=== PATIENT | male | born 1975 | race Two or more races ===

== ENCOUNTER 2019-02-27 14:57 | Emergency (ER) | payer SELFPAY ==
--- NOTE | 2019-02-27 15:05 | EDM.PDOC ---
ED HPI GENERAL MEDICAL PROBLEM - General Chief Complaint: Skin Complaint Stated Complaint: BUMP Time Seen by Provider: 02/27/19 15:00 Source of Information: Reports: Patient History Limitations: Reports: No Limitations - History of Present Illness INITIAL COMMENTS - FREE TEXT/NARRATIVE: HISTORY AND PHYSICAL: History of present illness: Patient is a 43-year-old male who presents to the emergency room with complaints of pain to his mid abdomen. He states approximately 1 week ago he had fallen and a bar had hit him in the mid abdomen near the umbilicus. He states the area was tender to palpation and "swollen". 3 days ago he was lifting heavy boxes and doing physical activity when he noticed an umbilical hernia. States area is tender to palpation and decided to have it evaluated. He continues to void and have routine bowel movements. Patient denies any fever , chills, headache, change in vision, syncope or near syncope. Denies any chest pain, back pain, shortness of breath or cough. Denies any nausea, vomiting, diarrhea, constipation or dysuria. Has not noted any blood in urine or stool. Patient has been eating and drinking appropriately. Review of systems: As per history of present illness and below otherwise all systems reviewed and negative. Past medical history: As per history of present illness and as reviewed below otherwise noncontributory. Surgical history: As per history of present illness and as reviewed below otherwise noncontributory. Social history: See social history for further information Family history: As per history of present illness and as reviewed below otherwise noncontributory. Physical exam: General: Well developed and developed and well nourished 43 year old male. Alert and orientated x3. Nontoxic appearing and in no acute distress. HEENT: Atraumatic, normocephalic, pupils equal and reactive bilaterally, negative for conjunctival pallor or scleral icterus, mucous membranes moist, trachea midline. No drooling or trismus noted. No meningeal signs. No hot potato voice noted. Lungs: Clear to auscultation, breath sounds equal bilaterally, chest nontender. Heart: S1S2, regular rate and rhythm without overt murmur Abdomen: Soft, obese, umbilical hernia noted that is reducible but painful. Negative for masses or costovertebral tenderness. Pelvis: Stable nontender. Skin: Intact, warm, dry. No lesions or rashes noted. Extremities: Atraumatic, moves all extremities per self without difficulty or deficits, negative for cords or calf pain. Neurovascular unremarkable. Neuro: Awake, alert, oriented. Cranial nerves II through XII unremarkable. Cerebellum unremarkable. Motor and sensory unremarkable throughout. Exam nonfocal. Notes: Patient states he does have a history of hypertension and does take lisinopril 40 mg once daily. Reports he has been compliant with his medications. No CT evidence of a visceral or vascular injury in the abdomen or pelvis. A moderate to large fat containing umbilical hernia. No bowel involvement. Small fat containing inguinal hernias. Hepatic steatosis. Punctate nonobstructive renal calcifications. Dr Pradhan, general surgeon on-call, was consulted on this case. We will give patient a abdominal binder and an appointment was made for the patient to see him on 03/05/2019 at 11 AM. All this information along with signs and symptoms that would prompt him to return to the emergency room were reviewed and discussed. Supportive care measures were reviewed and discussed. Voices understanding and is agreeable to plan of care. Denies any further questions or concerns at this time. Diagnostics: CBC, CMP, UA, CT abd/pelvis Therapeutics: Clonidine, Dacoma Prescription: Dacoma (#20) Impression: Hypertension Umbilical hernia Plan: 1. Avoid any strenuous heavy lifting. Nothing over 20 lbs until told otherwise by Dr Pradhan (surgeon). Wear abdominal binder when able. Tylenol and/or ibuprofen as we discussed. Dacoma for moderate to severe pain. This medication may cause drowsiness so do not take while driving or while at work. 2. If you should have any abdominal pain that doesn't improve or worsens - you need to return to the ED. 3. Follow up with primary care to have your blood pressure re-evaluated. May need medication adjustment. 4. You have a follow up appointment with the general surgeon, Dr Pradhan 2018 at 11am ( [facility]). Definitive disposition and diagnosis as appropriate pending reevaluation and review of above. Abdominal Pain Score (Numeric/FACES): 5 - Related Data Allergies Allergy/AdvReac Type Severity Reaction Status Date / Time No Known Allergies Allergy Verified 02/27/19 15:06 Home Meds: Home Meds Hydrocodone/Acetaminophen [Dacoma 5-325 Tablet] 1 each PO Q4HR PRN #20 tablet [Rx] Lisinopril [Zestril] 40 mg PO ASDIRECTED 02/27/19 [History] ED ROS GENERAL - Review of Systems Review Of Systems: Comprehensive ROS is negative, except as noted in HPI. ED EXAM, SKIN/RASH Exam: See Below (See dictation) Course - Vital Signs Last Recorded V/S: Last Vital Signs Temp 96.1 F 02/27/19 15:07 Pulse 81 02/27/19 15:07 Resp 16 02/27/19 15:07 BP 211/129 H 02/27/19 17:19 Pulse Ox 95 02/27/19 15:07 - Orders/Labs/Meds Labs: Laboratory Tests 02/27/19 02/27/19 02/27/19 Range/Units 15:20 15:20 16:48 WBC 9.89 (4.0-11.0) K/uL RBC 5.86 (4.50-5.90) M/uL Hgb 16.5 (13.0-17.0) g/dL Hct 49.6 (38.0-50.0) % MCV 84.6 (80.0-98.0) fL MCH 28.2 (27.0-32.0) pg MCHC 33.3 (31.0-37.0) g/dL RDW Std Deviation 43.4 (28.0-62.0) fl RDW Coeff of Jose Maria 14 (11.0-15.0) % Plt Count 264 (150-400) K/uL MPV 10.40 (7.40-12.00) fL Neut % (Auto) 47.0 L (48.0-80.0) % Lymph % (Auto) 35.0 (16.0-40.0) % Hamblen % (Auto) 11.1 (0.0-15.0) % Eos % (Auto) 6.6 (0.0-7.0) % Baso % (Auto) 0.3 (0.0-1.5) % Neut # (Auto) 4.7 (1.4-5.7) K/uL Lymph # (Auto) 3.5 H (0.6-2.4) K/uL Hamblen # (Auto) 1.1 H (0.0-0.8) K/uL Eos # (Auto) 0.7 (0.0-0.7) K/uL Baso # (Auto) 0.0 (0.0-0.1) K/uL Nucleated RBC % 0.0 /100WBC Nucleated RBCs # 0 K/uL Sodium 142 (136-148) mmol/L Potassium 3.2 L (3.5-5.1) mmol/L Chloride 105 (98-107) mmol/L Carbon Dioxide 29.2 (21.0-32.0) mmol/L BUN 11 (7.0-18.0) mg/dL Creatinine 0.9 (0.8-1.3) mg/dL Est Cr Clr Drug Dosing 105.83 mL/min Estimated GFR (MDRD) > 60.0 ml/min Glucose 83 (74-106) mg/dL Calcium 8.6 (8.5-10.1) mg/dL Total Bilirubin 0.2 (0.2-1.0) mg/dL AST 14 L (15-37) IU/L ALT 31 (14-63) IU/L Alkaline Phosphatase 128 H (46-116) U/L Total Protein 7.9 (6.4-8.2) g/dL Albumin 3.7 (3.4-5.0) g/dL Globulin 4.2 H (2.6-4.0) g/dL Albumin/Globulin Ratio 0.9 (0.9-1.6) Urine Color YELLOW Urine Appearance CLEAR Urine pH 7.0 (5.0-8.0) Ur Specific Arley 1.010 (1.001-1.035) Urine Protein NEGATIVE (NEGATIVE) mg/dL Urine Glucose (UA) NEGATIVE (NEGATIVE) mg/dL Urine Ketones NEGATIVE (NEGATIVE) mg/dL Urine Occult Blood TRACE-INTACT H (NEGATIVE) Urine Nitrite NEGATIVE (NEGATIVE) Urine Bilirubin NEGATIVE (NEGATIVE) Urine Urobilinogen 0.2 (<2.0) EU/dL Ur Leukocyte Esterase NEGATIVE (NEGATIVE) Urine RBC 0-3 (0-2/HPF) Urine WBC 0-2 (0-5/HPF) Ur Epithelial Cells OCCASIONAL (NONE-FEW) Urine Bacteria RARE (NEGATIVE) Urine Mucus LIGHT (NONE-MOD) Meds: Medications Discontinued Medications Generic Name Dose Route Start Last Admin Trade Name Freq PRN Reason Stop Dose Admin Hydrocodone Bitart/Acetaminophen 1 tab 02/27/19 17:09 02/27/19 17:19 Dacoma 325-5 Mg PO 02/27/19 17:10 1 tab ONETIME ONE Administration Clonidine HCl 0.1 mg 02/27/19 15:11 02/27/19 15:21 Catapres PO 02/27/19 15:12 0.1 mg ONETIME ONE Administration Clonidine HCl 0.1 mg 02/27/19 17:09 02/27/19 17:19 Catapres PO 02/27/19 17:10 0.1 mg ONETIME ONE Administration Iopamidol 100 ml 02/27/19 16:28 02/27/19 16:28 Isovue Multipack-370 (76%) IVPUSH 02/27/19 16:29 100 ml ONETIME STA Administration Departure - Departure Time of Disposition: 17:30 Disposition: Home, Self-Care 01 Clinical Impression: Umbilical hernia Qualifiers: Obstruction and gangrene presence: without obstruction or gangrene Qualified Code(s): K42.9 - Umbilical hernia without obstruction or gangrene Hypertension Qualifiers: Hypertension type: essential hypertension Qualified Code(s): I10 - Essential ( primary) hypertension - Discharge Information Prescriptions: Hydrocodone/Acetaminophen [Dacoma 5-325 Tablet] 1 each PO Q4HR PRN #20 tablet PRN Reason: Pain Referrals: PCP,None [Primary Care Provider] - Forms: ED Department Discharge Additional Instructions: The following information is given to patients seen in the emergency department who are being discharged to home. This information is to outline your options for follow-up care. We provide all patients seen in our emergency department with a follow-up referral. The need for follow-up, as well as the timing and circumstances, are variable depending upon the specifics of your emergency department visit. If you don't have a primary care physician on staff, we will provide you with a referral. We always advise you to contact your personal physician following an emergency department visit to inform them of the circumstance of the visit and for follow-up with them and/or the need for any referrals to a consulting specialist. The emergency department will also refer you to a specialist when appropriate. This referral assures that you have the opportunity for follow-up care with a specialist. All of these measure are taken in an effort to provide you with optimal care, which includes your follow-up. Under all circumstances we always encourage you to contact your private physician who remains a resource for coordinating your care. When calling for follow-up care, please make the office aware that this follow-up is from your recent emergency room visit. If for any reason you are refused follow-up, please contact the [facility] Emergency Department at and asked to speak to the emergency department charge nurse. [facility] [address] [place] [address] [facility] [address] [place] [address] PATIENT SCHEDULED TO SEE DR MAYRA PRADHAN ON 03/05/19 AT 11AM IN THE [address] [place] [address]. 1. Avoid any strenuous heavy lifting. Nothing over 20 lbs until told otherwise by Dr Pradhan (surgeon). Wear abdominal binder when able. Tylenol and/or ibuprofen as we discussed. Dacoma for moderate to severe pain. This medication may cause drowsiness so do not take while driving or while at work. 2. If you should have any abdominal pain that doesn't improve or worsens - you need to return to the ED. 3. Follow up with primary care to have your blood pressure re-evaluated. May need medication adjustment. 4. You have a follow up appointment with the general surgeon, Dr Pradhan 2018 at 11am ([address] [place] [address]). Sepsis Event Note - Focused Exam Vital Signs: Vital Signs Temp Pulse Resp BP BP Pulse Ox 02/27/19 17:19 211/129 H 02/27/19 16:48 200/110 H 02/27/19 16:12 195/111 H 02/27/19 15:21 221/132 H 02/27/19 15:07 96.1 F 81 16 221/132 H 95 Date Exam was Performed: 02/27/19 Time Exam was Performed: 17:28
[2019-02-27] MEDS ORDERED: cloNIDine 0.1 MG Tab PO ONE ×2 (15:11→17:09)
[2019-02-27 15:55] LABS: BLOOD UREA NITROGEN,BUN 11 mg/dL (7.0-18.0); CARBON DIOXIDE,CO2 29.2 mmol/L (21.0-32.0); CHLORIDE,CL 105 mmol/L (98-107); GLUCOSE RANDOM 83 mg/dL (74-106); POTASSIUM,K 3.2 mmol/L (3.5-5.1); SODIUM,NA 142 mmol/L (136-148)
[2019-02-27] MEDS ORDERED: Iopamidol 755 MG/ML 500 ML Multipack Bottle IVPUSH STA (16:28)
--- NOTE | 2019-02-27 17:07 | CT ---
INDICATION: Umbilical hernia. Fall on 02/19/2019 TECHNIQUE: CT abdomen and pelvis acquired with IV contrast. 100 mL of Isovue 370 administered. COMPARISON: None available FINDINGS: Lower chest: Minor right lower lobe subsegmental atelectasis. Liver: Hepatic steatosis. Spleen: Unremarkable. Pancreas: Unremarkable. Gallbladder and bile ducts: Unremarkable. Adrenal glands: Unremarkable. Kidneys: No hydronephrosis. Punctate nonobstructive calcifications in both kidneys. GI tract: Unremarkable. Appendix is normal. Vascular structures: Unremarkable. Lymph nodes: Unremarkable. Miscellaneous: No free fluid or free air. A moderate to large fat containing umbilical hernia. Small fat containing inguinal hernias. Pelvic Organs: Unremarkable. Bones: Unremarkable for age. IMPRESSION: No CT evidence of a visceral or vascular injury in the abdomen or pelvis. A moderate to large fat containing umbilical hernia. No bowel involvement. Small fat containing inguinal hernias. Hepatic steatosis. Punctate nonobstructive renal calcifications. Dictated by Sridhar Mas MD @ 02/27/2019 5:06:01 PM Please note that all CT scans at this facility use dose modulation, iterative reconstruction, and/or weight-based dosing when appropriate to reduce radiation dose to as low as reasonably achievable. Dictated by: Sridhar Mas MD @ 02/27/2019 17:06:28 (Electronically Signed)
[2019-02-27] MEDS ORDERED: Acetaminophen/HYDROcodone 325-5 MG Tab PO ONE (17:09)
== END 2019-02-27 17:44 | disposition home or self-care (01) ==
LOC: MW.ED 14:57
DX: K42.9 Umbilical hernia without obstruction or gangrene (principal); I10 Essential (primary) hypertension
CPT/HCPCS: 36415; 74177; 80053; 81001; 85025; 99284; A9270; Q9967

== ENCOUNTER 2019-04-15 06:51 | Day surgery (SDC) | payer OTHER ==
[~2019-04-15 06:51] MED LIST: Lactated Ringers 1,000 ML IV SCH; ceFAZolin 2 GM in Premix Bag 1 BAG IV SCH
--- NOTE | 2019-04-15 07:13 | PCM.PREANE ---
Preanesthetic Assessment - Anesthesia/Transfusion/Family Hx Anesthesia History: No Prior Anesthesia Family History of Anesthesia Reaction: No Transfusion History: No Prior Transfusion(s) - Review of Systems General: No Symptoms Pulmonary: No Symptoms Cardiovascular: No Symptoms Gastrointestinal: No Symptoms Neurological: No Symptoms Other: Reports: None - Physical Assessment Vital Signs: Last Vital Signs Temp 97.5 F 04/15/19 07:03 Pulse 77 04/15/19 07:03 Resp 16 04/15/19 07:03 BP Pulse Ox 94 L 04/15/19 07:03 Height: 5 ft 9 in Weight: 118.841 kg ASA Class: 2 Mental Status: Alert & Oriented x3 Airway Class: Mallampati = 2 Dentition: Reports: Normal Dentition ROM/Head Extension: Full Lungs: Clear to Auscultation, Normal Respiratory Effort Cardiovascular: Regular Rate, Regular Rhythm - Allergies Allergies/Adverse Reactions: Allergies Allergy/AdvReac Type Severity Reaction Status Date / Time No Known Allergies Allergy Verified 04/15/19 07:09 - Blood Blood Available: No - Anesthesia Plan Pre-Op Medication Ordered: None - Acknowledgements Anesthesia Type Planned: General Anesthesia Pt an Appropriate Candidate for the Planned Anesthesia: Yes Alternatives and Risks of Anesthesia Discussed w Pt/Guardian: Yes Pt/Guardian Understands and Agrees with Anesthesia Plan: Yes Additional Comments: PMH: htn PLAN: ga/lma PreAnesthesia Questionnaire HEENT History: Reports: Other (See Below) Other HEENT History: wears glasses/contacts Cardiovascular History: Reports: Hypertension Respiratory History: Reports: None Gastrointestinal History: Reports: None Genitourinary History: Reports: None Musculoskeletal History: Reports: None Neurological History: Reports: None Psychiatric History: Reports: None Endocrine/Metabolic History: Reports: Obesity/BMI 30+ Hematologic History: Reports: None Immunologic History: Reports: None Oncologic (Cancer) History: Reports: None Dermatologic History: Reports: None - Past Surgical History Head Surgeries/Procedures: Reports: None HEENT Surgical History: Reports: None Cardiovascular Surgical History: Reports: None Respiratory Surgical History: Reports: None GI Surgical History: Reports: None Male Surgical History: Reports: None Endocrine Surgical History: Reports: None Neurological Surgical History: Reports: None Musculoskeletal Surgical History: Reports: None Oncologic Surgical History: Reports: None Dermatological Surgical History: Reports: None - SUBSTANCE USE Smoking Status *Q: Never Smoker - HOME MEDS Home Medications: Home Meds Losartan Potassium 100 mg PO DAILY 04/09/19 [History] - CURRENT (IN HOUSE) MEDS Current Meds: Current Medications Cefazolin Sodium/Dextrose 2 gm (/ Premix) 50 mls @ 100 mls/hr IV ONETIME [facility] Lactated Ringer's (Ringers, Lactated) 1,000 mls @ 125 mls/hr IV ASDIRECTED [facility] Last Admin: 04/15/19 07:07 Dose: 125 mls/hr
[2019-04-15] MEDS ORDERED: Propofol 200 MG/20 ML SDV ONE (07:23)
[2019-04-15] MEDS ORDERED: Midazolam 1 MG/ML 2 ML SDV ONE (07:23)
[2019-04-15] MEDS ORDERED: Dexamethasone 4 MG/ML 5 ML MDV ONE (07:23)
[2019-04-15] MEDS ORDERED: Lidocaine 2% 5 ML SDV ONE (07:23)
[2019-04-15] MEDS ORDERED: Ondansetron 4 MG/2 ML SDV ONE (07:23)
[2019-04-15] MEDS ORDERED: fentaNYL 250 MCG/5 ML SDV ONE (07:24)
[2019-04-15] MEDS ORDERED: ceFAZolin 1 GM Vial ONE ×2 (07:29→07:37)
[2019-04-15] MEDS ORDERED: Bupivacaine 0.5% 30 ML SDV ONE (07:29)
[2019-04-15] MEDS ORDERED: Sodium Chloride 0.9% 20 ML ONE (07:37)
[2019-04-15] MEDS ORDERED: Phenylephrine/Normal Saline 100 MCG/ML 10 ML Syringe ONE (08:20)
[2019-04-15] MEDS ORDERED: Glycopyrrolate 0.2 MG/ML SDV ONE (08:23)
[2019-04-15] MEDS ORDERED: Acetaminophen/HYDROcodone 325-5 MG Tab PO PRN (09:21)
[2019-04-15] MEDS ORDERED: Morphine 10 MG/ML Syringe IVPUSH PRN (09:21)
[2019-04-15] MEDS ORDERED: Ondansetron 4 MG/2 ML SDV IVPUSH PRN (09:21)
[2019-04-15] MEDS ORDERED: Lactated Ringers 1,000 ML IV SCH (09:30)
--- NOTE | 2019-04-15 09:31 | PCM.OPNOTE ---
- General Post-Op/Procedure Note Date of Surgery/Procedure: 04/15/19 Operative Procedure(s): Repair incarcerated umbilical hernia with 4.3 cm ventral ex mesh. Partial omentectomy. Pre Op Diagnosis: Incarcerated umbilical hernia Post-Op Diagnosis: Same Anesthesia Technique: General LMA (ASA II) Primary Surgeon: William Hopkins General Ledger Bookkeeper: Camelia Calderon Reason General Ledger Bookkeeper Was Necessary: Exposure Fluid Replacement, Intraop: 1,200 EBL in mLs: 10 Condition: Good Free Text/Narrative:: DICTATION 026507 CPT CODE [id number]
--- NOTE | 2019-04-15 11:06 | OR ---
SURGEON: William Hopkins M.D. DATE OF PROCEDURE: 04/15/2019 OPERATIONS PERFORMED: 1. Repair of incarcerated umbilical hernia with 4.3 cm Ventralex mesh. 2. Partial omentectomy. PRIMARY SURGEON: William Hopkins MD. PING PONG TABLE ASSEMBLER: office assistant: CORY Swift project assistant student. ANESTHESIA: General LMA. ASA CLASSIFICATION: II. PREOPERATIVE DIAGNOSIS: Incarcerated umbilical hernia. POSTOPERATIVE DIAGNOSIS: Incarcerated umbilical hernia. ESTIMATED BLOOD LOSS: 10 mL. INTRAOPERATIVE FLUID REPLACEMENT: 1200 mL of crystalloid. DESCRIPTION OF PROCEDURE: The patient was taken to the operating room and placed on the operating table in the supine position. Time-out was called for appropriate identification of the patient and procedure. Surgical site had been marked prior to the patient entering the operating room. Thigh-high TEDs and sequential compression boots were placed. Following satisfactory attainment of general anesthesia with placement of an LMA, the abdomen was prepped with DuraPrep solution. Sterile drapes were applied. The skin below the umbilicus was infiltrated with 10 mL of 0.5% Marcaine solution. A skin incision was made and deepened through the subcutaneous tissue. There was a large amount of omentum that was present. This was circumferentially dissected free and all adhesions taken down. An attempt was made to reduce the omentum, but we could not completely reduce this. The defect itself was approximately quarter-sized. After several minutes of dissection and mobilization, it was elected to perform a partial omentectomy. This was done with the aid of the Harmonic scalpel. No bleeding was noted. The remainder of the omentum was easily reduced. The defect was now able to be measured. A 4.3 cm Ventralex mesh was brought to the operating table and soaked in 1% Ancef solution. This was then placed in an underlay technique and secured with multiple interrupted horizontal mattress 0 Ethibond sutures. All sutures were held with hemostats after being placed and tied. The patient was then given a Valsalva maneuver to 30 cm of water. The repair was solid. The wound was inspected for hemostasis and small bleeding sites were electrocoagulated. The fascia was then reapproximated over the mesh without difficulty. This was again accomplished with 0 Ethibond sutures. Wound was inspected for hemostasis a second time and no other bleeding was noted. The wound was irrigated with 1% Ancef solution. All fluid was aspirated. The subcutaneous tissue was closed with 3-0 Vicryl. The umbilicus was tacked down with a 3-0 Vicryl pursestring suture. The subcutaneous tissue was then closed with 3-0 Vicryl and the skin edges reapproximated with 4-0 Monocryl. The wound was Steri-Stripped. Sterile cotton ball was placed in the umbilicus. This was then dressed with a sterile Tegaderm pad. Sponge, needle, and instrument counts were all correct. Following emergence from anesthesia and extubation, the patient was taken to recovery room in stable condition. FREDRICK / BRYAN /[id number]
--- NOTE | 2019-04-15 11:28 | PCM48HPAN ---
Post Anesthesia Note - EVALUATION WITHIN 48HRS OF ANESTHETIC Vital Signs in Normal Range: Yes Patient Participated in Evaluation: Yes Respiratory Function Stable: Yes Airway Patent: Yes Cardiovascular Function Stable: Yes Hydration Status Stable: Yes Pain Control Satisfactory: Yes Nausea and Vomiting Control Satisfactory: Yes Mental Status Recovered: Yes Vital Signs: Last Vital Signs Temp 97.5 F 04/15/19 10:05 Pulse 72 04/15/19 11:05 Resp 14 04/15/19 11:05 BP 133/87 04/15/19 11:05 Pulse Ox 93 L 04/15/19 11:05
--- NOTE | 2019-04-15 11:28 | PCM.POSTAN ---
POST ANESTHESIA ASSESSMENT - MENTAL STATUS Mental Status: Alert, Oriented - VITAL SIGNS Vital Signs: Last Vital Signs Temp 97.5 F 04/15/19 10:05 Pulse 72 04/15/19 11:05 Resp 14 04/15/19 11:05 BP 133/87 04/15/19 11:05 Pulse Ox 93 L 04/15/19 11:05 - RESPIRATORY Respiratory Status: Respiratory Rate WNL, Airway Patent, O2 Saturation Stable - CARDIOVASCULAR CV Status: Pulse Rate WNL, Blood Pressure Stable - GASTROINTESTINAL GI Status: No Symptoms - POST OP HYDRATION Hydration Status: Adequate & Stable
== END 2019-04-15 11:20 | disposition home or self-care (01) ==
LOC: MW.SDS 06:51
PROVIDERS: ATTEND Surgery
DX: K42.0 Umbilical hernia with obstruction, without gangrene (principal); I10 Essential (primary) hypertension; E66.9 Obesity, unspecified; Z79.899 Other long term (current) drug therapy; Z68.38 Body mass index [BMI] 38.0-38.9, adult
CPT/HCPCS: 49587; A9270; J0690; J1100; J2001; J2250; J2270; J2370; J2405; J2704; J3010; J3490; J7120; 00750; 88304; C1781